=== PATIENT | female | born 1965 | race African-American/Black ===

== ENCOUNTER 2023-02-24 14:08 | Emergency (ER) | payer MEDICARE, BC ==
[~2023-02-24] VITALS: Ht 162.6 cm; Wt 90.7 kg
[2023-02-24 14:47] VITALS: BP 112/60
--- NOTE | 2023-02-24 14:49 | NUR ---
PT STATING SHE IS THIRSTY, PT OFFERED WATER. PT REFUSED AND STATED SHE DIDNT WANT.
--- NOTE | 2023-02-24 14:56 | NUR ---
BIBA BLS TO ER [facility]
[2023-02-24 17:09] LABS: BASOPHILS # (AUTO) 0.1 K/uL (0.00-0.22); BASOPHILS % (AUTO) 0.8 % (0.0-2.0); EOSINOPHILS # (AUTO) 0.1 K/uL (0-0.4); EOSINOPHILS % (AUTO) 1.1 % (0.0-4.0); HEMATOCRIT 49.2 % (36-48); HEMOGLOBIN 14.8 g/dL (12.0-16.0); LYMPHOCYTES # (AUTO) 1.9 K/uL (2.5-16.5); LYMPHOCYTES % (AUTO) 30.7 % (20.5-51.1); MEAN CORPUSCULAR HEMOGLOBIN 25 pg (27-31); MEAN CORPUSCULAR HGB CONC 30 g/dL (33-37); MEAN CORPUSCULAR VOLUME 82.9 fL (80-94); MONOCYTES # (AUTO) 0.8 K/uL (0.8-1.0); MONOCYTES % (AUTO) 12.2 % (1.7-9.3); NEUTROPHILS # (AUTO) 3.4 K/uL (1.8-7.7); NEUTROPHILS % (AUTO) 55.2 % (42.2-75.2); PLATELET COUNT (AUTO) 198 K/uL (140-450); RED BLOOD CELL COUNT(AUTO) 5.93 MIL/uL (4.20-5.40); RED CELL DISTRIBUTION WIDTH 18.2 % (11.6-13.7); WHITE BLOOD COUNT (AUTO) 6.2 K/uL (4.8-10.8)
[2023-02-24 17:34] LABS: ALBUMIN 2.8 g/dL (3.4-5.0); ANION GAP 6.3 (8-16); ASPARTATE AMINOTRANSFERASE 25 U/L (15-37); CARBON DIOXIDE 39.8 mmol/L (21-32); CHLORIDE 97 mmol/L (98-107); GFR ARICAN-AMERICAN 73 mL/min (>90); GLUCOSE 130 mg/dL (74-106); POTASSIUM 5.1 mmol/L (3.5-5.1); SODIUM SERUM 138 mmol/L (136-145); TOTAL BILIRUBIN 0.3 mg/dL (0.0-1.0); UREA NITROGEN, BLOOD 24 mg/dL (7-18)
--- NOTE | 2023-02-24 17:50 | NUR ---
MOVED TO ER BED 8
[2023-02-24] MEDS ORDERED: ALBUTEROL SULFATE/IPRATROPIU 3 ML SOL IH ONE (18:00)
--- NOTE | 2023-02-24 18:09 | NUR ---
SPO2 READING 79%. PT PLACED ON 2L N/C WITH IMPROVEMENT TO 90%. NO WORK OF BREATHING. RR 18. PT DENIES FEELING SPO2. PT CONTINUES TO TAKE OFF N/C. ATTEMPTED TO PLACE ANOTHER SPO2 MONITOR BUT PT REFUSING AND CUSSING AT STAFF. PT EDUCATED ON IMPORTANCE OF WEARING O2, PT STATED "I DONT WANT YOUR OXYGEN". IAN EDMONDSON MADE AWARE Addendum: 02/24/23 at 1821 by [facility] SPEAKING IN COMPLETE FULL SENTENCES. IAN EDMONDSON AT BEDSIDE WITH VERONIKA
--- NOTE | 2023-02-24 18:11 | NUR ---
TELECOMMUNICATIONS CLERK ASKED PT TO PUT PULSE OXIMETER ON FINGER, PT RESPONDED "WHAT THE FUCK FOR?" AND PULLED FINGER AWAY FROM STAFF. PT IS AWAKE AND ALERT X 4 DEMANDING TO BE SENT TO HER OWN HOSPITAL NOW
--- NOTE | 2023-02-24 18:20 | NUR ---
RT CALLED FOR BREATHING TREATMENT
--- NOTE | 2023-02-24 18:35 | NUR ---
PATIENT REFUSED TO COMPLETE BREATHING TREATMENT. REFUSED TO START IV ACCESS
--- NOTE | 2023-02-24 18:58 | NUR ---
PT ALLOWED ME TO ADMINISTER DUONEB BREATHING TX. HOWEVER, PT REFUSED ME DRAWING BLOOD FOR ABG. SHE ALSO STARTED TO DESAT AND REFUSED TO WEAR OXYGEN. INFORMED IAN RANDLE. HE WENT TO IMMEDIATELY SPEAK WITH THE PT.
--- NOTE | 2023-02-24 19:00 | NUR ---
patient left AMA. risks and benefits explained still wanting to leave AMA.
[2023-02-25] MEDS ORDERED: ASPIRIN 325 MG TABEC PO SCH (09:00)
== END 2023-02-24 19:00 | disposition left against medical advice (07) ==
LOC: MED 14:08 → EDSEX 14:08 → MED 19:00
DX: R77.8 Other specified abnormalities of plasma proteins (principal); R53.1 Weakness; R42 Dizziness and giddiness
CPT/HCPCS: 36415; 71045; 73562; 80053; 83880; 84484; 85025; 85379; 93005; 94640; 99285